=== PATIENT | male | born 1955 | race Caucasian/White ===

== ENCOUNTER → 2019-03-26 08:29 | Outpatient (CLI) | payer BC ==
--- NOTE | 2019-03-29 15:25 | ST ---
PATIENT:NIELS CANTU MEDICAL RECORD: [id number] SEX: M LOCATION:[facility] ORDER #: ADMISSION DATE: 03/26/19 AGE OF PATIENT: 63 REFERRING PHYSICIAN: INTERPRETING PHYSICIAN: JENNIFER STRONG MD DATE OF SERVICE: 03/26/2019 INDICATION: Angina, shortness of breath. He was exercised on standard Harley protocol for 7 minutes achieving 85% max target heart rate response with 27 mCi of sestamibi injected at peak stress, 9 mCi used previously for rest images. FINDINGS: Gated SPECT reveals a preserved ejection fraction at 65% with decreased thickening branch throughout the inferior segments. SPECT imaging Cardiolite was used as myocardial perfusion agent. There was a mixed perfusion defect inferiorly and apically. This is partially fixed, partially reversible includes the basal, mid, apical, inferior segments as well as the apex itself. The remaining segments with homogeneous uptake at rest and stress. OVERALL IMPRESSION: This is an intermediate risk abnormal nuclear stress test with reversible ischemia throughout the inferior and apical segment suggestive of hemodynamically significant coronary artery disease. TRANSINT:[id number] Voice Confirmation ID: [id number] DOCUMENT ID: [id number] JENNIFER STRONG MD at 1525 CC: MAGO GRAYSON [id number] DICTATION DATE: 03/27/19 1621 HEALTH SAFETY COORDINATOR: 03/28/19 0731 [facility] CLI 03/26/19 [id number] [place] [address]
[2019-03-30 10:43] VITALS: BMI 30.7
== END | disposition home or self-care (01) ==
LOC: D.HCCARDIO 08:29
PROVIDERS: ATTEND Internal Medicine Interventional Cardiology
DX: I20.9 Angina pectoris, unspecified (principal)

== ENCOUNTER 2019-03-30 10:04 | Outpatient (CLI) | payer BC ==
[~2019-03-30] VITALS: Ht 188 cm; Wt 108.6 kg
--- NOTE | ~2019-03-30 | OP ---
PATIENT NAME: NIELS CANTU MEDICAL RECORD: [id number] :55 LOCATION:D[facility] ADMISSION DATE: SURGEON: JENNIFER STRONG MD DATE OF OPERATION: 03/30/2019 PROCEDURE: The right radial area was prepped and draped in normal sterile fashion. Right radial artery was cannulated via modified Seldinger technique with placement of 5-Divehi sheath. All catheters exchanged through this sheath. FINDINGS: Left ventricle chamber size is within normal limits. Left ventricular systolic function is normal. Overall ejection fraction estimated 60%. SELECTIVE CORONARY ANGIOGRAPHY: Left main, left anterior descending, left circumflex, right coronary artery are all smooth-walled vessels with no angiographic evidence of coronary artery disease. OVERALL IMPRESSION: 1. No angiographic evidence of coronary artery disease. 2. Normal left heart pressures. 3. Normal left ventricular systolic function. Chest pain is noncardiac in etiology. No further cardiac workup needs to be ascertained. TRANSINT:[id number] Voice Confirmation ID: [id number] DOCUMENT ID: [id number] JENNIFER STRONG MD CC: [id number] DICTATION DATE: 03/30/19 1333 TERRITORY SALES EXECUTIVE: 03/30/19 1740 [facility] CLI 03/30/19 [id number] [place] [address]
--- NOTE | ~2019-03-30 | HEMODYNAMI ---
PATIENT:NIELS CANTU MEDICAL RECORD: [id number] : 55 LOCATION:[facility] ADMISSION DATE: 03/30/19 Generatedon:03/30/201913:34 Patient name: NIELS CANTU Patient #: [id number] : 1955 Date of study: 03/30/2019 Page: Of Hemodynamic Procedure Report Patient Data Patient Demographics Procedure consent was obtained First Name: NIELS Gender: Male Last Name: PEPE : 1955 Middle Initial: B Age: 63 year(s) Patient #: [id number] Race: Unknown SSN: [id number] Additional ID: [id number] Contact details [address]: [address] [place] [address] [facility] State: [place] City: [place] Zip code: [address] Admission Admission Data Admission Date: 03/30/2019 Admission Time: 10:04 Arrival Date: 03/30/2019 Arrival Time: 12:00 Admit Source: Other Insurance Payor: Private health insurance [facility] #: [id number] Height (in.): 28.35 BSA: 1.65 (m2) Height (cm.): 72 BMI: 470.68 (kg/m2) Weight (lbs.): 537.93 Weight (kg.): 244 Lab Results Lab Result Date: 03/30/2019 Lab Result Time: 0:00 Biochemistry Name Units Result Min Max BUN mg/dl 14 --(--*-)-- 7 18 Creatinine mg/dl 0.9 --(-*--)-- 0.6 1.3 eGFR ml/min 90 --(*---)-- 90 120 NONAFRICAN CBC Name Units Result Min Max Hemoglobin g/dl 15.7 --(--*-)-- 13.5 17.5 Procedure Procedure Types Cath Procedure Diagnostic Procedure LHC LHC w/Coronaries Sedation Charges Moderate Sedation up to 15 minutes Procedure Description Procedure Date Procedure Date: 03/30/2019 Procedure Start Time: 13:25 Procedure End Time: 13:31 Procedure Staff Name Function Mic Mercado MD Performing Physician Marlena Murillo RT Monitor Joselyn Pope RT Scrub Roberto Griffiths RN Nurse Procedure Data Cath Procedure Fluoroscopy Diagnostic fluoroscopy Total fluoroscopy Time: 0.8 time: 0.8 min min Diagnostic fluoroscopy Total fluoroscopy dose: 486 dose: 486 mGy mGy Contrast Material Contrast Material Type Amount (ml) Isovue 300 42 Entry Location Entry Primary Successful Side Size Upsize Upsize Entry Closure Mak ccessful Closure Location (Fr) 1 (Fr) 2 (Fr) Remarks Device Remarks Radial Right 6 Fr Mechanical artery Short Compression Estimated blood loss: 5 ml Diagnostic catheters Device Type Used For End Catheter Placement DIAGNOSTIC Carey 110cm 5 Multi-vessel Fr catheter ([id number]) Angiography Procedure Complications No complications Procedure Medications Medication Administration Route Dosage Oxygen etCO2 Nasal cannula 2 l/min Heparin Flush Bag added to field 2 bags (1000units/500ml NS) 0.9% NaCl I.V. 100 ml/hr Lidocaine 2% added to field 20 Radial Cocktail added to field 1 syringe (Verapamil 2mg/Nitro 400mcg/Heparin 1500units) Fentanyl I.V. 50 mcg Versed I.V. 1 mg Fentanyl I.V. 50 mcg Versed I.V. 1 mg Radial Cocktail I.A. 1 syringe (Verapamil 2mg/Nitro 400mcg/Heparin 1500units) Fentanyl I.V. 50 mcg Hemodynamics Rest BSA: 1.65 (m2) HGB: 15.7 (g/dl) O2 Consumption: Estimated: 189.61 (ml/min) O2 Co nsumption indexed: Estimated:114.92 (ml/min/m) Heart Rate: 65 (bpm) Pressure Samples Time Site Value (mmHg) Purpose Heart Use Rate(bpm) 13:27 LV -6/-8,-7 Snapshot 73 Snapshots Pre Cath Intra NCS Post Cath Vital Signs Time Heart Resp SPO2 etCO2 NIBP (mmHg) Rhythm Pain Sedation Rate (ipm) (%) (mmHg) Status Level (bpm) 13:16:50 66 17 99 28.1 132/86(112) NSR 0 (11) 10(A) , No pain 13:20:58 63 17 100 26.5 114/82(91) NSR 0 (11) 10(A) , No pain 13:25:01 58 17 88 30.3 131/79(92) NSR 0 (11) 9(A) , No pain 13:29:11 68 17 99 33.4 107/72(101) NSR 0 (11) 9(A) , No pain 13:31:22 67 17 98 33.4 120/77(96) NSR 0 (11) 9(A) , No pain Medications Time Medication Route Dose Verified Delivered Reason Notes Effectiveness by by 13:16:30 Oxygen etCO2 2 l/min Mic Mejia Per Nasal Rogelio Griffiths RN physician cannula 13:16:37 Heparin Flush added 2 bags Mic Mejia used for Bag to Rogelio Griffiths RN procedure (1000units/500ml field NS) 13:16:45 0.9% NaCl I.V. 100 Mic Mejia Per ml/hr Rogelio Grifftihs RN physician 13:17:14 Lidocaine 2% added 20ml Mic Mejia used for to vial Rogelio Griffiths RN procedure field 13:17:23 Radial Cocktail added 1 Mic Mejia used for (Verapamil to syringe Rogelio Griffiths RN procedure 2mg/Nitro field 400mcg/Heparin 1500units) 13:20:35 Fentanyl I.V. 50 mcg Mic Mejia for sedation Rogelio Griffiths RN 13:20:41 Versed I.V. 1 mg Mic Mejia for sedation Rogelio Griffiths RN 13:26:21 Fentanyl I.V. 50 mcg Mic Mejia for sedation Rogelio Griffiths RN 13:26:24 Versed I.V. 1 mg Mic Mejia for sedation Rogelio Griffiths RN 13:26:41 Radial Cocktail I.A. 1 Mic Haile for (Verapamil syringe Rogelio Mercado MD vasodilation 2mg/Nitro 400mcg/Heparin 1500units) 13:28:38 Fentanyl I.V. 50 mcg Mic Mejia for sedation Rogelio Griffiths RN Procedure Log Time Note 12:57:13 Diagnostic Cath Status : Elective 12:57:49 Informed consent obtained and on chart 12:59:03 Arrival Date: 03/30/2019 12:00:00 PM 12:59:39 Admit Source: Other 12:59:42 Insurance Payor : Private health insurance 12:59:46 Patient Height : 28.35 inches 12:59:50 Patient Weight : 537.93 lbs 13:01:38 Lab Result : eGFR NONAFRICAN 90 ml/min 13::38 Lab Result : Creatinine 0.9 mg/dl 13::38 Lab Result : BUN 14 mg/dl 13::38 Lab Result : Hemoglobin 15.7 g/dl 13:02:32 Joselyn Pope RT(R) sent for patient. Start room use. 13:02:33 Time tracking: Regular hours (M-F 7:00 - 5:00) 13:02:37 Plan of Care:Hemodynamics will remain stable., Cardiac rhythm will remain stable., Comfort level will be maintained., Respiratory function will remain adequate., Patient/ family verbilizes understanding of procedure., Procedure tolerated without complication., Recovers from procedure without complications.. 13:04:50 Risk of Mortality: <0.1 13:04:53 Risk of blood transfusion: <0.1 13:04:58 Risk of ARIELLE: <0.1 13:05:09 1) 90+ Normal kidney functon but urine findings or structural abnormalities or genetic trait point to kidney disease. 13:05:13 Maximum allowable contrast dose (3.7 X eGFR X 0.75)249 ml. 13:15:46 Vital chart was started 13:16:30 Oxygen 2 l/min etCO2 Nasal cannula was administered by Roberto Griffiths RN; Per physician; Verbal order read back and verified. 13:16:37 Heparin Flush Bag (1000units/500ml NS) 2 bags added to field was administered by Roberto Griffiths RN; used for procedure; Verbal order read back and verified. 13:16:45 0.9% NaCl 100 ml/hr I.V. was administered by Roberto Griffiths RN; Per physician; Verbal order read back and verified. 13:17:05 Warm blankets applied, and steven hugger turned on for patient comfort. 13:17:05 Correct patient and procedure confirmed by team. 13:17:06 Baseline sample Acquired. 13:17:06 ECG and BP/O2 sat monitors applied to patient. 13:17:10 Rhythm: sinus rhythm 13:17:11 Full Disclosure recording started 13:17:14 Lidocaine 2% 20ml vial added to field was administered by Roberto Griffiths RN; used for procedure; Verbal order read back and verified. 13:17:15 H&P Date Dictated: 03/30/2019 Within 30 days and on chart., H&P Addendum completed by physician on day of procedure. (MUST COMPLETE FOR ALL OUTPATIENTS). 13:17:17 Pre-procedure instructions explained to patient. 13:17:17 Pre-op teaching completed and patient verbalized understanding. 13:17:19 Family in patients room. 13:17:20 Patient NPO since Midnight. 13:17:22 Is the patient allergic to Iodine/contrast media? No. 13:17:23 Radial Cocktail (Verapamil 2mg/Nitro 400mcg/Heparin 1500units) 1 syringe added to field was administered by Roberto Griffiths RN; used for procedure; Verbal order read back and verified. 13:17:23 Was the patient premedicated? Yes 13:17:24 Is patient on blood thinner?No 13:17:37 Patient diabetic? No. 13:17:40 Previous problem with sedation/anesthesia? No ? 13:17:41 Snore? Yes 13:17:42 Sleep apnea? No 13:17:43 Deviated septum? No 13:17:44 Opens mouth fully? Yes 13:17:45 Sticks out tongue? Yes 13:17:46 Airway obstruction? No ? 13:17:49 Dentures? No ? 13:17:53 Pre procedure: right dorsailis pedis pulse 2+ Normal; easily identifiable; not easily obliterated 13:17:56 Pre procedure: left dorsailis pedis pulse 2+ Normal; easily identifiable; not easily obliterated 13:17:59 Patient pain scale 0/10 ?. 13:18:02 Lab results completed and on chart. 13:18:08 Stress Test: yes; abnormal 63 13:18:13 Right Radial & Right Groin area was prepped with chlora-prep and draped in sterile fashion 13:18:14 Alarms reviewed by R. N. 13:18:14 Sharps counted by scrub and verified by R.N. 13:18:15 Physician arrived 13:18:16 --------ALL STOP TIME OUT------ 13:18:16 Final Timeout: patient, procedure, and site verified with staff and physician. All members of the team are in agreement. 13:18:18 Right Radial & Right Groin site verified by team. 13:18:21 Fire Safety Assessment: A--An alcohol-based skin anteseptic being used preoperatively., C--Open oxygen or nitrous oxide is being used., D--An ESU, laser, or fiber-optic light is being used. 13:18:24 Physical assessment completed. ASA score P 2 - A patient with mild systemic disease as per Mic Mercado MD. 13:18:28 Sedation plan: IV Moderate Sedation Medication:Versed, Fentanyl 13:19:12 Use device set Radial Dx or PCI 13:19:13 ACIST Syringe (59524) opened to sterile field. 13:19:13 Medline Cath Pack ([id number]) opened to sterile field. 13:19:13 Bag Decanter (2002S) opened to sterile field. 13:19:14 ACIST Hand Control (44665) opened to sterile field. 13:19:14 ACIST Manifold (66768) opened to sterile field. 13:19:14 Tegaderm 4 x 4 (1626W) opened to sterile field. 13:19:16 MBrace Wrist Support (359580769) opened to sterile field. 13:19:18 SHEATH 6FR RAIN (3470676) opened to sterile field. 13:19:20 EMERALD Guide Wire (470-883) opened to sterile field. 13:20:35 Fentanyl 50 mcg I.V. was administered by Roberto Griffiths RN; for sedation; Verbal order read back and verified. 13:20:41 Versed 1 mg I.V. was administered by Roberto Griffiths RN; for sedation; Verbal order read back and verified. 13:23:23 Zero performed for pressure channel P1 13:25:22 Procedure started. 13:25:26 Local anesthetic to right radial artery with Lidocaine 2% by Mic Mercado MD.INITIAL ACCESS ONLY 13:25:35 A 6 Fr Short sheath was inserted into the Right Radial artery 13:26:21 Fentanyl 50 mcg I.V. was administered by Roberto Griffiths RN; for sedation; Verbal order read back and verified. 13:26:24 Versed 1 mg I.V. was administered by Roberto Griffiths RN; for sedation; Verbal order read back and verified. 13:26:31 A DIAGNOSTIC Carey 110cm 5 Fr catheter (527591) was advanced over the wire and used for Multi-vessel Angiography. 13:26:41 Radial Cocktail (Verapamil 2mg/Nitro 400mcg/Heparin 1500units) 1 syringe I.A. was administered by Mic Mercado MD; for vasodilation; Verbal order read back and verified. 13:27:44 LV hemodynamics recorded. 13:27:45 LV gram done using DOUGHERTY 13:27:47 Injector settings: Ml/sec: 5, Volume: 15, 13:27:52 EF : 60 % 13:28:02 LCA angiography performed. 13:28:04 Injector settings: Ml/sec: 3, Volume: 6, 13:28:38 Fentanyl 50 mcg I.V. was administered by Roberto Griffiths RN; for sedation; Verbal order read back and verified. 13:29:16 RCA angiography performed. 13:29:19 Injector settings: Ml/sec: 3, Volume: 6, 13:29:22 Catheter removed. 13:29:23 ACCDominant side:Right 13:29:50 ZEPHYR REGULAR TR BAND (745127) opened to sterile field. 13:30:02 Sheath removed intact; hemostasis achieved with Mechanical Compression to the Right Radial artery. 13:30:04 Procedure ended.(Physican Out) 13:30:24 Fluoroscopy time 00.80 minutes. 13:30:27 Fluoroscopy dose: 486 mGy 13:30:27 Flurop Dose total: 486 13:30:34 Dose Area Product 94154 mGy/cm. 13:30:37 Contrast amount:Isovue 300 42ml. 13:30:40 Maximum allowable dose exceeded? No. 13:30:41 Sharps counted by scrub and verified by R.N. 13:30:43 Insertion/operative site no bleeding no hematoma. 13:30:51 Post right radial artery:stable 13:30:53 Post Procedure Pulses reassessed and unchanged 13:30:56 Post procedure rhythm: unchanged. 13:30:58 Estimated blood loss: 5 ml 13:31:00 Post procedure instruction explained to patient.Patient verbalizes understanding. 13:31:00 Patient needs reinforcement of post procedure teaching. 13:31:11 Procedure type changed to Cath procedure, Diagnostic procedure, LHC, LHC w/Coronaries, Sedation Charges, Moderate Sedation up to 15 minutes 13:31:12 Procedure and supply charges have been captured, reviewed, submitted and are correct. 13:31:16 Procedure Complication : No complications 13:31:21 Vital chart was stopped 13:31:24 [facility] Findings: mild to moderate CAD (<70%) 13:31:26 Operative report dictated upon procedure completion. 13:31:27 See physician's report for complete and final results. 13:31:30 Report given to Pre/Post Procedure Room. 13:31:33 Patient transfered to Pre/Post Procedure Room with Stretcher. 13:31:35 Procedure ended. 13:31:35 Full Disclosure recording stopped 13:31:40 End room use (Document Last) Device Usage Item Name Manufacture Quantity Catalog Hospital Part Current Minima l Lot# / Number Charge Number Stock Stock Serial# Code ACIST Acist 1 41600 131074 978265 [id number] 20 Syringe Medical (04626) Systems Inc Medline Medline 1 [id number] 804895 94437 916805 5 Cath Pack ([id number]) Bag Microtek 1 2001S 328405 69611 052855 5 Decanter Medical Inc. () ACIST Hand Acist 1 39718 244851 398883 957840 5 Control Medical (27945) Systems Inc ACIST Acist 1 76528 455801 787401 905126 5 Manifold Medical (51923) Systems Inc Tegaderm 4 3M 1 1626W 505126 791121 436077 5 x 4 (1626W) MBrace Advanced 1 140-0250-00 670486 42718 613469 5 Wrist Vascular Support Dynamics ([id number]) SHEATH 6FR Cardinal 1 9528225 637882 9185086 940124 5 RAIN Health (7518203) EMERALD Cardinal 1 502-455 127526 256419 398986 5 Guide Wire Health (380-918) DIAGNOSTIC Terumo 1 40-5437 368259 691438 509356 5 Carey 110cm 5 Fr catheter (546963) ZEPHYR Cardinal 1 694381 422920 0296314 816156 5 REGULAR TR Health BAND (730970) Signature Audit [place] Stage Time Signature Unsigned Intra-Procedure 03/30/2019 Marlena Murillo 1:32:56 PM RT(R) Intra-Procedure 03/30/2019 Roberto Griffiths 1:33:29 PM RN Intra-Procedure 03/30/2019 Mic Mercado 1:34:00 PM MD Signatures Performing Physician : Signature : Mic Mercado MD Date : Time : Monitor : Marlena Chidi RT Signature : Date : Time : Nurse : Roberto Griffiths RN Signature : Date : Time : [address] [place] [address]
[2019-03-30 10:43] VITALS: BP 128/98; Ht 188 cm; Wt 108.6 kg
[2019-03-30 10:57] LABS: BASOPHILS 0.8 % (0-2); EOSINOPHILS 0.8 % (0-7); HEMATOCRIT 46.6 % (42.0-54.0); HEMOGLOBIN 15.7 g/dL (13.5-17.5); IMMATURE GRANULOCYTES 0.2 % (0-5); LYMPHOCYTES 32.6 % (15-50); MCH 30.7 pg (26.0-34.0); MCHC 33.7 g/dL (31.0-37.0); MCV 91.2 fL (80.0-100.0); MEAN PLATELET VOLUME 9.4 fL (7.4-10.4); MONOCYTES 8.4 % (2-11); NEUTROPHILS 57.2 % (40-80); PLATELET COUNT 200 10x3/uL (130-400); RBC 5.11 10x6/uL (4.20-6.10); RDW 12.8 % (11.5-14.5); WBC 4.8 10x3/uL (4.8-10.8)
[2019-03-30 11:01] LABS: CALC OSMOLALITY 281 mosm/kg (275-300); CALCIUM 8.6 mg/dL (8.5-10.1); CARBON DIOXIDE 24.9 mmol/L (21.0-32.0); CHLORIDE - SERUM 108 mmol/L (98-107); CREATININE - SERUM 0.9 mg/dL (0.6-1.3); GLUCOSE 95 mg/dL (74-106); SODIUM 141 mmol/L (136-145); UREA NITROGEN 14 mg/dL (7-18); eGFR NON AFRICAN AMERICAN > 90 mL/min (90-120)
--- NOTE | 2019-03-30 13:41 | NUR ---
PT ARRIVED BY STRETCHER. PLACED ON MONITORS. ASSESSMENT COMPLETED. VSS. CALL LIGHT WITHIN REACH. FAMILY AT BEDSIDE.
--- NOTE | 2019-03-30 13:56 | NUR ---
RIGHT WRIST Z BAND IN PLACE. NO BLEEDING/HEMATOMA NOTED. CALL LIGHT WITHIN REACH. FAMILY AT BEDSIDE. VSS.
--- NOTE | 2019-03-30 14:25 | NUR ---
PT RESTING COMFORTABLY. VSS. RIGHT WRIST Z BAND IN PLACE. NO BLEEDING/HEMATOMA NOTED. CALL LIGHT WITHIN REACH. FAMILY AT BEDSIDE.
--- NOTE | 2019-03-30 14:30 | NUR ---
4cc OF AIR REMOVED FROM Z BAND. NO BLEEDING/HEMATOMA NOTED. CALL LIGHT WITHIN REACH. VSS AT THIS TIME.
--- NOTE | 2019-03-30 14:53 | NUR ---
4cc OF AIR REMOVED FROM Z BAND. NO BLEEDING/HEMATOMA NOTED. CALL LIGHT WITHIN REACH. VSS. FAMILY AT BEDSIDE. NO NEEDS AT THIS TIME.
--- NOTE | 2019-03-30 15:15 | NUR ---
Z BAND REMOVED. DRESSING APPLIED. RIGHT WRIST BRACE IN PLACE. NO BLEEDING/HEMATOMA NOTED. PIV D/C'D WITH CATH TIP INTACT. TOLERATED WELL. PT INSTRUCTED TO GET UP AND DRESSED AT THIS TIME.
--- NOTE | 2019-03-30 15:30 | NUR ---
RIGHT WRIST DRESSING C/D/I. NO S/S OF HEMATOMA NOTED. DISCUSSED DISCHARGE INSTRUCTIONS WITH PT AND PT'S . THEY VOICED UNDERSTANDING. PT AMBULATED TO RESTROOM AND VOIDED WITHOUT DIFFICULTY.
--- NOTE | 2019-03-30 15:40 | NUR ---
PT TAKEN OUT TO VEHICLE BY WHEELCHAIR. NO S/S OF DISTRESS NOTED. ALL BELONGINGS AND PAPERWORK IN HAND.
== END 2019-03-30 15:40 | disposition home or self-care (01) ==
LOC: D.CATH 10:04
PROVIDERS: ATTEND Internal Medicine Interventional Cardiology
DX: I20.9 Angina pectoris, unspecified (principal); R07.9 Chest pain, unspecified; R06.09 Other forms of dyspnea

== ENCOUNTER 2020-09-19 06:24 | Day surgery (SDC) | payer BC ==
[~2020-09-19] VITALS: Ht 188 cm; Wt 109.3 kg
[2020-09-19 06:57] LABS: BASOPHILS 1.2 % (0-2); EOSINOPHILS 1.7 % (0-7); HEMATOCRIT 44.1 % (42.0-54.0); HEMOGLOBIN 14.8 g/dL (13.5-17.5); LYMPHOCYTES 28.1 % (15-50); MCH 30.4 pg (26.0-34.0); MCHC 33.6 g/dL (31.0-37.0); MCV 90.5 fL (80.0-100.0); MEAN PLATELET VOLUME 6.7 fL (7.4-10.4); MONOCYTES 10.6 % (2-11); NEUTROPHILS 58.4 % (40-80); PLATELET COUNT 210 10x3/uL (130-400); RBC 4.87 10x6/uL (4.20-6.10); RDW 13.2 % (11.5-14.5); WBC 4.5 10x3/uL (4.8-10.8)
[2020-09-19 07:14] LABS: CALC OSMOLALITY 278 mosm/kg (275-300); CALCIUM 8.8 mg/dL (8.5-10.1); CARBON DIOXIDE 27.7 mmol/L (21.0-32.0); CHLORIDE - SERUM 106 mmol/L (98-107); CREATININE - SERUM 0.9 mg/dL (0.6-1.3); GLUCOSE 102 mg/dL (74-106); POTASSIUM - SERUM 3.9 mmol/L (3.5-5.1); SODIUM 140 mmol/L (136-145); UREA NITROGEN 13 mg/dL (7-18); eGFR NON AFRICAN AMERICAN 90 mL/min (90-120)
[2020-09-19 07:40] VITALS: BP 126/85; Ht 188 cm; Wt 109.3 kg
[2020-09-19] MEDS ORDERED: HYDROCODON-ACE1 EA10 PO (11:08)
--- NOTE | 2020-09-19 11:54 | NUR ---
1149 - PT AWAKENING, OPA REMOVED
--- NOTE | 2020-09-19 14:06 | NUR ---
1258 PT ASSISTED TO BATHROOM AND VOIDED. 1315 IV REMOVED. CATHETER INTACT. 1330 D/C HOME INSTRUCTIONS GIVEN.
--- NOTE | 2020-09-20 13:36 | OP ---
PATIENT NAME: SYDNI CANTU MEDICAL RECORD: [id number] :55 LOCATION:D.OPS ADMISSION DATE: SURGEON: JD LUEVANO MD DATE OF OPERATION: 09/19/2020 PREOPERATIVE DIAGNOSIS: Appendiceal polyp. POSTOPERATIVE DIAGNOSIS: Appendiceal polyp. PROCEDURE: Laparoscopic appendectomy. SURGEON: Jd Luevano MD DESCRIPTION OF PROCEDURE: The patient's abdomen was prepped and draped in sterile fashion. A cutdown was made on the superior aspect of the umbilicus, 0 Vicryls were placed on the fascia bilaterally and the fascia was incised with a 15-blade. I then bluntly entered the peritoneal cavity and placed a 12-mm Buffy port under direct visualization, a 5-mm trocar was placed in the left lower quadrant and another was placed in the suprapubic region. I could see the patient's right colon and as I followed this down, I could see it extending out towards the terminal ileum. The distal small bowel was adherent to the lateral sidewall of the abdomen. As I inspected the cecum, I could not see any evidence of appendix. The cecum itself appeared to bent backwards, so I thought the appendix may be retrocecal. I went ahead and took down the white line of Toldt from the distal aspect of the cecum and began mobilizing this portion of the colon medially. I continued to follow the colon, which was looping back on itself up towards the hepatic flexure. I eventually had to takedown some of the attachments of the small bowel from the lateral sidewall using sharp dissection and electrocautery. This allowed more mobilization of the cecum and eventually I was able to see that the cecum of the colon extended up superiorly towards the hepatic flexure and the appendix was found circled up on top of the tissues hidden in the overlying fatty tissue and omentum. I began dissecting the fatty tissue free and encountered a bleeding arterial vessel, which was clamped proximally and distally. We eventually were able to dissect the tissues free from each other and extend the appendix towards the abdominal wall. With this, I was able to open up the mesoappendix near its base and we transected the mesoappendix using a 45 white load Endo-HARPER stapler. The appendiceal base was then entered. The cecum was dissected free. I eventually transected the appendix including a portion of the cecum using a 45 blue load Endo-HARPER stapler. There were no signs of any active bleeding at the conclusion of the case. We irrigated out the abdomen thoroughly with normal saline. The patient had no evidence of any succuss or injuries anywhere throughout the right side of the abdomen. At this point, the ports and insufflation were then removed and the appendix was taken out through the umbilicus in an EndoCatch bag. The umbilical fascia was closed with interrupted 0 Vicryls times 3. The wounds were then infused with 10 mL of 0.25% Marcaine with epinephrine and closed with subcutaneous 5-0 Monocryl. COMPLICATIONS: None. CONDITION: Stable. ANESTHESIA: General endotracheal and local. BLOOD LOSS: 30 mL. OPERATIVE REPORT [id number] SYDNI CANTU TRANSINT:[id number] Voice Confirmation ID: [id number] DOCUMENT ID: [id number] JD LUEAVNO MD at 1336 CC: NAV LOPEZ MD and MAGO GRAYSON [id number] DICTATION DATE: 09/19/20 1112 NAILHEAD SETTER: 09/19/20 1342 [facility] [place] 09/19/20 [facility] [address] [place] [address]
== END 2020-09-19 13:30 | disposition home or self-care (01) ==
LOC: D.OPS 06:24
PROVIDERS: ATTEND Surgery
DX: D12.1 Benign neoplasm of appendix (principal)

== ENCOUNTER 2020-09-19 17:24 | Observation (INO) | payer BC ==
[~2020-09-19] VITALS: Ht 188 cm; Wt 109.3 kg
[~2020-09-19 17:24] MED LIST: HYDROCODON-ACE1 EA10 PO
[2020-09-19 17:57] LABS: BASOPHILS 0.2 % (0-2); EOSINOPHILS 0 % (0-7); HEMATOCRIT 38.4 % (42.0-54.0); HEMOGLOBIN 12.6 g/dL (13.5-17.5); LYMPHOCYTES 3.7 % (15-50); MCHC 32.8 g/dL (31.0-37.0); MCV 91.3 fL (80.0-100.0); MEAN PLATELET VOLUME 7.1 fL (7.4-10.4); MONOCYTES 6.7 % (2-11); NEUTROPHILS 89.4 % (40-80); PLATELET COUNT 231 10x3/uL (130-400); RDW 13.5 % (11.5-14.5)
[2020-09-19 18:27] LABS: CALC OSMOLALITY 284 mosm/kg (275-300); CALCIUM 8.4 mg/dL (8.5-10.1); CARBON DIOXIDE 22.3 mmol/L (21.0-32.0); CHLORIDE - SERUM 105 mmol/L (98-107); GLUCOSE 184 mg/dL (74-106); POTASSIUM - SERUM 4.1 mmol/L (3.5-5.1); SODIUM 140 mmol/L (136-145); UREA NITROGEN 15 mg/dL (7-18); eGFR NON AFRICAN AMERICAN 80 mL/min (90-120)
[2020-09-19 18:31] LABS: WBC 12.7 10x3/uL (4.8-10.8)
[2020-09-19 18:33] LABS: ALBUMIN 3.2 g/dL (3.4-5.0); ALKALINE PHOSPHATASE 41 U/L (30-120); ALT (SGPT) 21 U/L (10-68); AMYLASE - SERUM 12 U/L (25-115); BILIRUBIN - TOTAL 0.97 mg/dL (0.2-1.3)
[2020-09-19 18:36] LABS: LIPASE 33 U/L (73-393)
[2020-09-19 19:06] LABS: TROPONIN-I < 0.017 ng/mL (0.000-0.060)
[2020-09-19 19:09] VITALS: BP 106/78
--- NOTE | 2020-09-19 19:10 | NUR ---
PT REPORT GIVEN TO JESE GARNER
[2020-09-19 22:26] VITALS: BP 100/70; BMI 31.0
[2020-09-19 22:32] VITALS: BP 100/70
--- NOTE | 2020-09-20 03:32 | NUR ---
PATIENT ON CL, PATIENT SHIRT ON RT LOWER SIDE IS SOAKED WITH BLOOD, LAP SITE TO RT LOWER ABD IS LEAKING, REMOVED BANDAGE WELL STERISTRIP AND CLEANED SITE, REAPPLIED STERISTRIP WELL BANDAGE AND CHANGED PATIENT SHEET AND GAVE PATIENT GOWN, NO OTHER NEEDS AT THIS TIME, SPOUSE AT BEDSIDE, CONTINUE WITH PLAN OF CARE
--- NOTE | 2020-09-20 03:37 | NUR ---
I have reviewed this patient and I concur with the Shift Assessment completed by the Licensed Practical Nurse today this shift.
--- NOTE | 2020-09-20 03:57 | NUR ---
I have reviewed this patient and I concur with the Shift Assessment completed by the Licensed Practical Nurse today this shift.
[2020-09-20 05:15] VITALS: BP 112/70
[2020-09-20 06:30] LABS: BASOPHILS 0.2 % (0-2); EOSINOPHILS 0 % (0-7); HEMATOCRIT 34.3 % (42.0-54.0); HEMOGLOBIN 11.4 g/dL (13.5-17.5); LYMPHOCYTES 10.4 % (15-50); MCH 30.3 pg (26.0-34.0); MCHC 33.2 g/dL (31.0-37.0); MCV 91.3 fL (80.0-100.0); MEAN PLATELET VOLUME 7.3 fL (7.4-10.4); MONOCYTES 12.6 % (2-11); NEUTROPHILS 76.8 % (40-80); PLATELET COUNT 216 10x3/uL (130-400); RBC 3.75 10x6/uL (4.20-6.10); RDW 13.7 % (11.5-14.5)
[2020-09-20 06:35] LABS: WBC 8.4 10x3/uL (4.8-10.8)
[2020-09-20 07:19] LABS: ALBUMIN 3.7 g/dL (3.4-5.0); ANION GAP 16.4 mmol/L (8-16); BILIRUBIN - TOTAL 0.94 mg/dL (0.2-1.3); CARBON DIOXIDE 22.8 mmol/L (21.0-32.0); CREATININE - SERUM 1.1 mg/dL (0.6-1.3); POTASSIUM - SERUM 4.2 mmol/L (3.5-5.1); PROTEIN - SERUM 5.7 g/dL (6.4-8.2)
--- NOTE | 2020-09-20 08:07 | NUR ---
AAOX4 IN BEDSIDE CHAIR UPON ENTERING. IN ROOM WELL. AIDE OBTAINING VITALS. DENIES ANY NEEDS AT THIS TIME. FLUIDS HUNG. BED IN LOWEST POSITION, BED RAILS X2, CALL LIGHT WITHIN REACH. WILL CONTINUE POC. ASSESSMENT PERFORMED AT THIS TIME.
[2020-09-20 09:14] VITALS: BP 92/64
--- NOTE | 2020-09-20 11:51 | NUR ---
NO INSULIN PER SLIDING SCALE FOR SUGAR OF 143.
--- NOTE | 2020-09-20 13:01 | NUR ---
RESTING UPRIGHT IN BED. DENIES ANY NEEDS AT THIS TIME. WILL CONTINUE POC.
[2020-09-20 13:15] VITALS: Ht 188 cm; Wt 109.3 kg
[2020-09-20 13:37] VITALS: BP 113/75
--- NOTE | 2020-09-20 14:57 | NUR ---
REMOVED IV FROM LEFT AC. CATHETER TIP INTACT. COVERED WITH GAUZE AND TAPE. TOLERATED WELL. SIGNED ALL NECESSARY DISCHARGE PAPERWORK. DENIES FURTHER NEEDS FROM HOSPTIAL/STAFF AT THIS TIME. BEING ESCORTED OUT VIA TRANSPORT AT THIS TIME VIA WHEELCHAIR.
== END 2020-09-20 14:58 | disposition home or self-care (01) ==
LOC: D.ER 17:24 → OBSVTIME 19:36 → D.EDHOLD 19:36 → D.MS 20:15
PROVIDERS: Emergency Medicine; Family Medicine; ADMIT Surgery; ATTEND Surgery
DX: R55 Syncope and collapse (principal); R10.9 Unspecified abdominal pain; R42 Dizziness and giddiness; Z98.890 Other specified postprocedural states

== ENCOUNTER 2020-09-21 20:24 | Inpatient (IN) | payer BC, MEDICARE ==
[~2020-09-21] VITALS: Ht 188 cm; Wt 107.0 kg
--- NOTE | 2020-09-21 20:30 | NUR ---
REC'D PATIENT TO ROOM 2201. AT BEDSIDE. PATIENT DENIES NEEDS AT THIS TIME. BED IN LOWEST POSITION AND CALL LIGHT IN REACH. WILL CALL DR. LUEVANO FOR FURTHER ORDERS.
--- NOTE | 2020-09-21 20:45 | NUR ---
REC'D ORDERS FROM DR. LUEVANO. WILL ENTER ORDERED.
--- NOTE | 2020-09-21 21:15 | NUR ---
PLACED 20G PIV TO PATIENT'S LEFT FA ON THE FIRST ATTEMPT.
[2020-09-21 21:25] LABS: BASOPHILS 0.5 % (0-2); EOSINOPHILS 0.1 % (0-7); HEMOGLOBIN 10.3 g/dL (13.5-17.5); LYMPHOCYTES 8.7 % (15-50); MCHC 34.2 g/dL (31.0-37.0); MCV 90.5 fL (80.0-100.0); MEAN PLATELET VOLUME 6.8 fL (7.4-10.4); MONOCYTES 7.7 % (2-11); PLATELET COUNT 206 10x3/uL (130-400); RBC 3.32 10x6/uL (4.20-6.10); RDW 13.4 % (11.5-14.5); WBC 8.3 10x3/uL (4.8-10.8)
[2020-09-21 21:28] VITALS: BP 137/86; BMI 30.3
[2020-09-21 21:39] LABS: ALKALINE PHOSPHATASE 34 U/L (30-120); ALT (SGPT) 17 U/L (10-68); AMYLASE - SERUM 17 U/L (25-115); BILIRUBIN - TOTAL 0.93 mg/dL (0.2-1.3); CALC OSMOLALITY 279 mosm/kg (275-300); CALCIUM 8.4 mg/dL (8.5-10.1); CHLORIDE - SERUM 102 mmol/L (98-107); GLUCOSE 142 mg/dL (74-106); POTASSIUM - SERUM 3.6 mmol/L (3.5-5.1); PROTEIN - SERUM 6.6 g/dL (6.4-8.2); SODIUM 139 mmol/L (136-145); UREA NITROGEN 13 mg/dL (7-18)
[2020-09-21 21:42] LABS: CREATININE - SERUM 0.8 mg/dL (0.6-1.3); LIPASE 45 U/L (73-393); eGFR NON AFRICAN AMERICAN > 90 mL/min (90-120)
[2020-09-21 21:49] LABS: ALBUMIN 3.4 g/dL (3.4-5.0)
[2020-09-21 21:54] LABS: CARBON DIOXIDE 29.5 mmol/L (21.0-32.0)
[2020-09-22 00:57] VITALS: BP 125/81
[2020-09-22 05:09] VITALS: BP 128/82
[2020-09-22 07:12] LABS: BASOPHILS 0.6 % (0-2); EOSINOPHILS 0 % (0-7); HEMATOCRIT 27.6 % (42.0-54.0); HEMOGLOBIN 9.5 g/dL (13.5-17.5); LYMPHOCYTES 12.6 % (15-50); MCH 31.5 pg (26.0-34.0); MCHC 34.5 g/dL (31.0-37.0); MCV 91.1 fL (80.0-100.0); MEAN PLATELET VOLUME 7.5 fL (7.4-10.4); NEUTROPHILS 77.8 % (40-80); PLATELET COUNT 217 10x3/uL (130-400); RBC 3.03 10x6/uL (4.20-6.10); RDW 13.3 % (11.5-14.5); WBC 7.6 10x3/uL (4.8-10.8)
[2020-09-22 07:18] LABS: CALC OSMOLALITY 282 mosm/kg (275-300); CALCIUM 7.9 mg/dL (8.5-10.1); CARBON DIOXIDE 29.2 mmol/L (21.0-32.0); CHLORIDE - SERUM 105 mmol/L (98-107); CREATININE - SERUM 0.7 mg/dL (0.6-1.3); GLUCOSE 109 mg/dL (74-106); POTASSIUM - SERUM 3.7 mmol/L (3.5-5.1); SODIUM 141 mmol/L (136-145); UREA NITROGEN 14 mg/dL (7-18); eGFR NON AFRICAN AMERICAN > 90 mL/min (90-120)
--- NOTE | 2020-09-22 07:50 | NUR ---
PT LYING IN BED. IV CDI. ICE CHIPS GIVEN. RR EVEN NONLABORED. ALL NEEDS MET AT THIS TIME. CLWR.
[2020-09-22 08:23] VITALS: BP 119/72
[2020-09-22 13:14] VITALS: BP 121/73
[2020-09-22 17:04] VITALS: BP 119/74
[2020-09-22 20:00] VITALS: BP 125/70
[2020-09-23 07:05] LABS: CALC OSMOLALITY 281 mosm/kg (275-300); CALCIUM 7.6 mg/dL (8.5-10.1); CARBON DIOXIDE 27.2 mmol/L (21.0-32.0); CHLORIDE - SERUM 108 mmol/L (98-107); CREATININE - SERUM 0.6 mg/dL (0.6-1.3); GLUCOSE 102 mg/dL (74-106); POTASSIUM - SERUM 3.5 mmol/L (3.5-5.1); SODIUM 142 mmol/L (136-145); eGFR NON AFRICAN AMERICAN > 90 mL/min (90-120)
[2020-09-23 07:06] LABS: UREA NITROGEN 10 mg/dL (7-18)
[2020-09-23 07:07] LABS: BASOPHILS 0.6 % (0-2); EOSINOPHILS 1.9 % (0-7); HEMATOCRIT 25.9 % (42.0-54.0); HEMOGLOBIN 8.9 g/dL (13.5-17.5); LYMPHOCYTES 13.7 % (15-50); MCH 31.3 pg (26.0-34.0); MCHC 34.2 g/dL (31.0-37.0); MCV 91.6 fL (80.0-100.0); MEAN PLATELET VOLUME 7.1 fL (7.4-10.4); MONOCYTES 8.3 % (2-11); NEUTROPHILS 75.5 % (40-80); PLATELET COUNT 231 10x3/uL (130-400); RBC 2.83 10x6/uL (4.20-6.10); RDW 13.2 % (11.5-14.5)
[2020-09-23 07:18] LABS: WBC 5.5 10x3/uL (4.8-10.8)
--- NOTE | 2020-09-23 07:45 | NUR ---
RECIEVED BEDSIDE REPORT. BED LOW POSITION, CALL LIGHT IN REACH. ALERT AND ORIENTED. DENIES NEEDS AT THIS TIME. WILL CONTINUE TO MONITOR.
[2020-09-23 09:06] VITALS: BP 132/82
[2020-09-23 12:00] VITALS: BP 141/74
[2020-09-23 14:39] VITALS: Ht 188 cm; Wt 107.0 kg
[2020-09-23 16:54] VITALS: BP 147/86
--- NOTE | 2020-09-23 20:18 | NUR ---
rec'd walking in hallway with family denies pain or any discomforts will continue to monitor and follow current plan of care
[2020-09-24] VITALS: BP 140/82
[2020-09-24 04:00] VITALS: BP 135/77
[2020-09-24 05:32] LABS: BASOPHILS 0.5 % (0-2); EOSINOPHILS 3.2 % (0-7); HEMATOCRIT 26.1 % (42.0-54.0); HEMOGLOBIN 8.8 g/dL (13.5-17.5); MCHC 33.9 g/dL (31.0-37.0); MCV 91.4 fL (80.0-100.0); MEAN PLATELET VOLUME 6.9 fL (7.4-10.4); NEUTROPHILS 69.3 % (40-80); PLATELET COUNT 240 10x3/uL (130-400); RBC 2.85 10x6/uL (4.20-6.10); RDW 13.2 % (11.5-14.5); WBC 5.1 10x3/uL (4.8-10.8)
[2020-09-24 05:54] LABS: CALC OSMOLALITY 279 mosm/kg (275-300); CALCIUM 7.8 mg/dL (8.5-10.1); CARBON DIOXIDE 27.5 mmol/L (21.0-32.0); CHLORIDE - SERUM 105 mmol/L (98-107); CREATININE - SERUM 0.7 mg/dL (0.6-1.3); GLUCOSE 95 mg/dL (74-106); MAGNESIUM - SERUM 2.1 mg/dL (1.8-2.4); PHOSPHOROUS 3.2 mg/dL (2.5-4.9); POTASSIUM - SERUM 3.4 mmol/L (3.5-5.1); SODIUM 141 mmol/L (136-145); UREA NITROGEN 9 mg/dL (7-18); eGFR NON AFRICAN AMERICAN > 90 mL/min (90-120)
--- NOTE | 2020-09-24 06:22 | NUR ---
I have reviewed this patient and I concur with the Shift Assessment completed by the Licensed Practical Nurse today this shift.
--- NOTE | 2020-09-24 07:51 | NUR ---
RECIEVED BEDSIDE REPORT. BED LOW POSITION, CALL LIGHT IN REACH. AT BEDSIDE. PATIENT REPORTS HE HAD 2 BOWEL MOVEMENTS LAST NIGHT THAT WERE SOFT. DENIES FURTHER NEEDS AT THIS TIME. WILL CONTINUE TO MONITOR.
[2020-09-24 08:21] VITALS: BP 142/83
[2020-09-24 13:58] VITALS: BP 135/79
[2020-09-24 17:03] VITALS: BP 100/67
[2020-09-24 20:00] VITALS: BP 129/72
[2020-09-25 04:00] VITALS: BP 131/76
[2020-09-25 05:18] LABS: BASOPHILS 0.5 % (0-2); EOSINOPHILS 2.8 % (0-7); HEMATOCRIT 26.2 % (42.0-54.0); HEMOGLOBIN 9.2 g/dL (13.5-17.5); LYMPHOCYTES 16.9 % (15-50); MCH 31.5 pg (26.0-34.0); MEAN PLATELET VOLUME 6.9 fL (7.4-10.4); MONOCYTES 10.4 % (2-11); NEUTROPHILS 69.4 % (40-80); PLATELET COUNT 270 10x3/uL (130-400); RBC 2.91 10x6/uL (4.20-6.10); RDW 13.1 % (11.5-14.5); WBC 5.3 10x3/uL (4.8-10.8)
[2020-09-25 05:44] LABS: CALC OSMOLALITY 277 mosm/kg (275-300); CALCIUM 8.2 mg/dL (8.5-10.1); CARBON DIOXIDE 28.2 mmol/L (21.0-32.0); CHLORIDE - SERUM 105 mmol/L (98-107); CREATININE - SERUM 0.7 mg/dL (0.6-1.3); GLUCOSE 107 mg/dL (74-106); POTASSIUM - SERUM 3.5 mmol/L (3.5-5.1); SODIUM 140 mmol/L (136-145); UREA NITROGEN 11 mg/dL (7-18); eGFR NON AFRICAN AMERICAN > 90 mL/min (90-120)
--- NOTE | 2020-09-25 07:35 | NUR ---
PT IS RESTING IN BED WITH EYES OPEN. RESPIRATIONS ARE EVEN AND UNLABORED. PT IS AAO X 4 AND ANSWERS ALL QUESTIONS APPROPRIATELY. PT DENIES PRESENCE OF N/V/DYSPNEA/SOB AT THIS TIME. BRUIDING NOTED TO RLQ AND ABDOMEN. PT REPORTS BM THIS AM "AT 6:15" AND STATES LAST EPISODE OF EMESIS "WAS TUESDAY". PIV TO LEFT FA INFUSING PER ODER WITHOUT COMPROMISE. BED IS IN THE LOWEST POSITION. CALL LIGHT AND BEDSIDE TABLE ARE WITHIN REACH. SIDE RAILS X 2. PT DENIES FURTHER NEEDS. WILL CONT TO MONITOR.
[2020-09-25 08:44] VITALS: BP 139/80
[2020-09-25] MEDS ORDERED: REGLAN10 MG PO (09:54)
--- NOTE | 2020-09-25 11:35 | NUR ---
ALL DISCHARGE INSTRUCTIONS COVERE WITH PT. BOTH WRITTEN AND VERBAL. PIV TO LEFT FA REMOVED WITH CATHETER TIP INTACT. DRESSING APPLIED. NO RX GIVEN TO PT AND PT STATES "I WILL CALL HIS OFFICE IF I NEED SOMETHING, I AM NOT WAITING ON THAT TO GET OU OF HERE". PT DENIES FURTHER QUESTIONS/CONCERNS/NEEDS. ALL DISCHARGE PAPERS SIGNED BY PT. YARD SUPERVISOR NOTIFIED OF NEED FOR PT TRANSPORT. PT DENIES FURTHER NEEDS.
--- NOTE | 2020-09-25 11:43 | NUR ---
PT TRANSPORTED FROM ROOM VIA WHEELCHAIR ESCORTED BY INDUSTRIAL STAFF NURSE. PT THANKS THIS NURSE FOR CARE GIVEN DURING THIS SHIFT AND DENIES FURTHER QUESTIONS/CONCERNS/NEEDS.
--- NOTE | 2020-09-25 13:26 | MORECARE ---
CASE MANAGEMENT DISCHARGE SUMMARY PATIENT: SYDNI CANTU UNIT: [id number] ADM DATE: 09/21/20 AGE: 65 : 55 SEX: M ROOM/BED: D.2201 AUTHOR: DAMIEN,DOC PHYSICIAN: REFERRING PHYSICIAN: ROE LUEVANO MD DATE OF SERVICE: 09/25/20 Case Management Discharge Planning Summary COMMENTS ENTERED DATE: 09/25/20 13:20 CT COMMENT TYPE: Discharge Planning REVIEWER: Joycelyn Gaspar late entry patient is independent with his care, his will drive him home and he does not need anything from a CM standpoint. DC home DCP REVIEW SUMMARY ANTICIPATED D/C DATE: EXPECTED LOS : CASE STATUS: DCP Initiated INITIAL REVIEW: 09/21/2020 INITIAL REVIEWER: Joycelyn Gaspar FINAL DISCHARGE DISPOSITION: 01 : Home or Self Care (Routine Discharge) FINAL REVIEWER: FINAL REVIEW DATE: DCP [employer] Questions & Answers QUESTION: ANSWER : PATIENT: SYDNI CANTU ENCOUNTER: [id number] MEDICAL RECORD#: [id number] ADMISSION DATE: 09/21/2020 DISCHARGE DATE: 09/25/2020 ATTENDING MD: ROE COPELAND : AGE: 65 MARITAL STATUS: M DC PLAN ID: [id number] FACILITY: [facility] PRINTED ON: 09/25/20 13:26 CT All edits/amendments must be made on the electronic document DICTATION DATE: 09/25/20 132 SHELLFISH SORTER: NATANAEL 09/25/20 1326 RPT#: [id number] DC DATE:09/25/20 STATUS: DIS IN [facility] [address] [place] [address] END OF REPORT
--- NOTE | 2020-09-25 17:04 | MORECARE ---
CASE MANAGEMENT DISCHARGE SUMMARY PATIENT: SYDNI CANTU UNIT: [id number] ADM DATE: 09/21/20 AGE: 65 : 55 SEX: M ROOM/BED: D.2201 AUTHOR: DAMIEN,DOC PHYSICIAN: REFERRING PHYSICIAN: ROE LUEVANO MD DATE OF SERVICE: 09/25/20 Case Management Discharge Planning Summary COMMENTS ENTERED DATE: 09/25/20 13:20 CT COMMENT TYPE: Discharge Planning REVIEWER: Joycelyn Gaspar late entry patient is independent with his care, his will drive him home and he does not need anything from a CM standpoint. DC home DCP REVIEW SUMMARY ANTICIPATED D/C DATE: EXPECTED LOS : CASE STATUS: DCP Initiated INITIAL REVIEW: 09/21/2020 INITIAL REVIEWER: Joycelyn Gaspar FINAL DISCHARGE DISPOSITION: 01 : Home or Self Care (Routine Discharge) FINAL REVIEWER: FINAL REVIEW DATE: DCP [employer] Questions & Answers QUESTION: ANSWER : PATIENT: SYDNI CANTU ENCOUNTER: [id number] MEDICAL RECORD#: [id number] ADMISSION DATE: 09/21/2020 DISCHARGE DATE: 09/25/2020 ATTENDING MD: ROE COPELAND : AGE: 65 MARITAL STATUS: M DC PLAN ID: [id number] FACILITY: [facility] PRINTED ON: 09/25/20 17:04 CT All edits/amendments must be made on the electronic document DICTATION DATE: 09/25/201703 RAIL LAYER: NATANAEL 09/25/201703 RPT#: [id number] DC DATE:09/25/20 STATUS: DIS IN [facility] [address] [place] [address] END OF REPORT
== END 2020-09-25 11:43 | disposition home or self-care (01) | DRG 389 ==
LOC: D.MS 20:24
PROVIDERS: ADMIT Surgery; ATTEND Surgery
DX: K56.7 Ileus, unspecified (principal); D62 Acute posthemorrhagic anemia